=== PATIENT | male | born 1970 | race Caucasian/White ===

== ENCOUNTER 2024-03-11 08:50 | Day surgery (SDC) | payer BC, SELFPAY ==
[2024-03-08 14:19] VITALS: BMI 33.6
[2024-03-11] VITALS (10 sets, daily range): BP systolic 102–141; BP diastolic 73–96; PULSE 69–81; RESP 9–20; TEMP 36.3–36.7; O2SAT 94–99; BMI 33.7
[2024-03-11] MEDS: ONDANSETRON INJ 2 MG/ML INJ 2 ML 4 MG IV (10:44)
[2024-03-11] MEDS: DiphenhydrAMINE INJ 50 MG/ML VIAL 25 MG IV (10:44)
[2024-03-11] MEDS: MIDAZOLAM INJ 1 MG/ML VIAL 2 ML (ASD USE ONLY) 2 MG IV (10:48)
[2024-03-11] MEDS: fentaNYL CIT INJ 50 mCg/ML AMP 2ML (ASD USE ONLY) IV (10:48)
== END 2024-03-11 11:50 | disposition home or self-care (01) ==
PROVIDERS: PCP Family Medicine; Referring Provider Specialist; Visit Provider Specialist
PROC: 0DBE8ZX Excision of Large Intestine, Via Natural or Artificial Opening Endoscopic, Diagnostic (ICD-10-PCS; CPT 45380; principal; 2024-03-11 10:45)
DX: Z12.11 Encounter for screening for malignant neoplasm of colon (principal); K64.9 Unspecified hemorrhoids; K57.30 Diverticulosis of large intestine without perforation or abscess without bleeding
CPT/HCPCS: 45378; J1200; J2250; J2405; J3010

== ENCOUNTER → 2024-09-09 | Outpatient (CLI) | payer BC, SELFPAY ==
--- NOTE | 2024-09-09 13:30 | XR_ITS ---
Examination: CT abdomen with intravenous contrast. Coronal 2-D reconstructions. Sagittal 2-D reconstructions. Date and time of exam:September 09, 2024 1342 hours Comparison December 31, 2023 INDICATIONS: History acute pancreatitis, 8.2 x 5.[address] abdomen December 31, 2023 CTDI: vol (mGy): 10.6 DLP: (mGycm): 396 Technique: Axial images of the abdomen have been obtained, 3 mm slice thickness, 60 cc [id number] 2-D sagittal coronal reconstructions Low dose protocols were performed. One or more of the following dose reduction techniques were used; automated exposure control, adjustment of the mA and/or KV according to patient size, use of iterative reconstruction technique. Findings: No focal liver or splenic lesions Necrotic pancreas with 7.4 x 2.6 cm pseudocyst contiguous with the anterior margin of the pancreas No current peripancreatic edema No hydronephrosis Aorta normal size No bowel obstruction No pericecal inflammatory change Bladder intact IMPRESSION: Necrotic pancreas with 7.4 x 2.6 cm pseudocyst contiguous with the anterior margin of the pancreas
== END | disposition home or self-care (01) ==
PROVIDERS: Referring Provider Nurse Practitioner Family; Visit Provider Nurse Practitioner Family
DX: K86.89 Other specified diseases of pancreas (principal)
CPT/HCPCS: 74160; A4649; Q9967

== ENCOUNTER → 2024-11-22 | Outpatient (CLI) | payer BC, SELFPAY ==
[2024-11-22 16:04] LABS: Glucose Estimated Average 120 mg/dL (80-131); Hemoglobin A1C 5.8 % Hgb (4.8-6.0)
[2024-11-22 16:06] LABS: Amylase 33 U/L (30-118)
[2024-11-22 16:43] LABS: Misc Send Out* See Sep Rpt
== END | disposition home or self-care (01) ==
LOC: COPL 14:49
PROVIDERS: PCP Nurse Practitioner Family; Referring Provider Nurse Practitioner Family; Visit Provider Nurse Practitioner Family
DX: K86.3 Pseudocyst of pancreas (principal); K86.89 Other specified diseases of pancreas; E78.5 Hyperlipidemia, unspecified
CPT/HCPCS: 36415; 82150; 83036